=== PATIENT | male | born 1945 | race Hispanic/Latino ===

== ENCOUNTER → 2017-07-16 | Outpatient (CLI) | payer OTHER ==
[~2017-07-16] MED LIST: CHRO400T10 PO; CYAN50008 PO; FOLI0.8T PO; INS7030 SQ; LOSA100T29 PO; MAGN250T10 PO; NUTR113P PO; RIBA200T4 PO; SOFO1TAB PO
== END | disposition home or self-care (01) ==
LOC: SHCH 10:10
PROVIDERS: ATTEND Internal Medicine Cardiovascular Disease
DX: I87.2 Venous insufficiency (chronic) (peripheral) (principal)
CPT/HCPCS: 93970

== ENCOUNTER → 2017-11-22 | Outpatient (CLI) | payer OTHER | END | disposition home or self-care (01) | LOC: SHCH 10:05 | PROVIDERS: ATTEND Internal Medicine Cardiovascular Disease | DX: Z09 Encounter for follow-up examination after completed treatment for conditions other than malignant neoplasm (principal) | CPT/HCPCS: 93971 ==

== ENCOUNTER → 2018-03-10 | Outpatient (CLI) | payer OTHER ==
[~2018-03-10] MED LIST changes: +LOSA100T20 PO; -LOSA100T29 PO
== END | disposition home or self-care (01) ==
LOC: RAH 10:27
PROVIDERS: ATTEND Internal Medicine
DX: L97.529 Non-pressure chronic ulcer of other part of left foot with unspecified severity (principal); M86.8X7 Other osteomyelitis, ankle and foot
CPT/HCPCS: 73630

== ENCOUNTER → 2018-03-11 | Outpatient (CLI) | payer OTHER | END | disposition home or self-care (01) | LOC: RAH 09:26 | PROVIDERS: ATTEND Internal Medicine Gastroenterology | DX: K80.20 Calculus of gallbladder without cholecystitis without obstruction (principal); R16.1 Splenomegaly, not elsewhere classified; K74.60 Unspecified cirrhosis of liver; N28.1 Cyst of kidney, acquired | CPT/HCPCS: 76700; 93975 ==

== ENCOUNTER 2018-08-16 06:05 | Day surgery (SDC) | payer OTHER ==
[~2018-08-16] VITALS: Ht 167.6 cm; Wt 73.9 kg
[~2018-08-16 06:05] MED LIST changes: -LOSA100T20 PO; +LOSA100T58 PO; +SODIUM CHLORIDE 0.9% 1000ML 1,000 ML IV ONE
[2018-08-16] MEDS ORDERED: INS7030 SQ (07:24)
[2018-08-16] MEDS ORDERED: PROPRANOLOL (07:24)
[2018-08-16] MEDS ORDERED: GLIPIZIDE (07:24)
[2018-08-16] MEDS ORDERED: LOSA25TA41 PO (07:24)
[2018-08-16 07:25] VITALS: BP 147/63
[2018-08-16] MEDS ORDERED: PROPOFOL 10 MG/ML 20ML VIAL IV ONE (08:50)
[2018-08-16 08:58] VITALS: BP 86/30
[2018-08-16 09:05] VITALS: BP 106/41
[2018-08-16 09:10] VITALS: BP 109/50
[2018-08-16 09:15] VITALS: BP 118/46
[2018-08-16 09:28] VITALS: BP 126/57
== END 2018-08-16 09:35 | disposition home or self-care (01) ==
LOC: DAH 06:05 → ENDO 06:05
PROVIDERS: ATTEND Internal Medicine
DX: K29.50 Unspecified chronic gastritis without bleeding (principal); K31.89 Other diseases of stomach and duodenum; I85.10 Secondary esophageal varices without bleeding; K74.60 Unspecified cirrhosis of liver; Z79.899 Other long term (current) drug therapy
CPT/HCPCS: 43239; 82948 ×2; 88305; A4606; J2704; J7030

== ENCOUNTER → 2018-08-25 | Outpatient (CLI) | payer OTHER ==
[~2018-08-25] MED LIST changes: -CHRO400T10 PO; +GLIPIZIDE; -LOSA100T58 PO; +LOSA25TA41 PO; -NUTR113P PO; +PROPRANOLOL; -RIBA200T4 PO; -SODIUM CHLORIDE 0.9% 1000ML 1,000 ML IV ONE; -SOFO1TAB PO
== END | disposition home or self-care (01) ==
LOC: RAH 07:58
PROVIDERS: ATTEND Internal Medicine Gastroenterology
DX: K74.60 Unspecified cirrhosis of liver (principal); K80.20 Calculus of gallbladder without cholecystitis without obstruction
CPT/HCPCS: 76700

== ENCOUNTER 2018-09-20 08:11 | Day surgery (SDC) | payer OTHER ==
[~2018-09-20] VITALS: Ht 167.6 cm; Wt 74.4 kg
[~2018-09-20 08:11] MED LIST changes: +SODIUM CHLORIDE 0.9% 1000ML 1,000 ML IV ONE
[2018-09-20 09:01] VITALS: BP 142/57
[2018-09-20] MEDS ORDERED: PROPOFOL 10 MG/ML 20ML VIAL IV ONE (09:23)
[2018-09-20 09:37] VITALS: BP 96/28
[2018-09-20 09:42] VITALS: BP 112/54
[2018-09-20 09:47] VITALS: BP 102/54
[2018-09-20 09:52] VITALS: BP 128/59
[2018-09-20 09:58] VITALS: BP 139/64
== END 2018-09-20 11:05 | disposition home or self-care (01) ==
LOC: DAH 08:11 → ENDO 08:11
PROVIDERS: ATTEND Internal Medicine Gastroenterology
DX: D12.2 Benign neoplasm of ascending colon (principal); K57.30 Diverticulosis of large intestine without perforation or abscess without bleeding; Z86.010 Personal history of colon polyps; E11.9 Type 2 diabetes mellitus without complications; I10 Essential (primary) hypertension; M19.90 Unspecified osteoarthritis, unspecified site; I85.00 Esophageal varices without bleeding; B18.2 Chronic viral hepatitis C; C22.9 Malignant neoplasm of liver, not specified as primary or secondary; Z79.899 Other long term (current) drug therapy; Z98.890 Other specified postprocedural states
CPT/HCPCS: 45380; 82948 ×2; 93005; A4606; J2704; J7030

== ENCOUNTER → 2019-04-05 | Outpatient (CLI) | payer OTHER ==
[~2019-04-05] MED LIST changes: -SODIUM CHLORIDE 0.9% 1000ML 1,000 ML IV ONE
== END | disposition home or self-care (01) ==
LOC: RAH 07:50
PROVIDERS: ATTEND Internal Medicine Gastroenterology
DX: K74.60 Unspecified cirrhosis of liver (principal); K80.20 Calculus of gallbladder without cholecystitis without obstruction; R16.1 Splenomegaly, not elsewhere classified
CPT/HCPCS: 76700; 93975

== ENCOUNTER → 2019-11-13 | Outpatient (CLI) | payer OTHER | END | disposition home or self-care (01) | LOC: RAH 09:06 | PROVIDERS: ATTEND Internal Medicine Gastroenterology | DX: K80.20 Calculus of gallbladder without cholecystitis without obstruction (principal); K74.60 Unspecified cirrhosis of liver ==

== ENCOUNTER → 2020-08-28 | Outpatient (CLI) | payer OTHER ==
[~2020-08-28] MED LIST changes: -FOLI0.8T PO; +FOLI0.8T3 PO
== END | disposition home or self-care (01) ==
LOC: RAH 14:43
PROVIDERS: ATTEND Nurse Practitioner Family
DX: M79.89 Other specified soft tissue disorders (principal); M25.842 Other specified joint disorders, left hand
CPT/HCPCS: 73130

== ENCOUNTER 2021-08-16 13:13 | Inpatient (IN) | payer OTHER ==
[~2021-08-16] VITALS: Ht 167.6 cm; Wt 71.9 kg
[~2021-08-16 13:13] MED LIST changes: -CYAN50008 PO; +CYAN50009 PO
[2021-08-16 13:59] LABS: EOSINOPHILS % (AUTO) 1.1 % (0.0-8.0); HEMATOCRIT 24.9 % (42-54); LYMPHOCYTES % (AUTO) 11.5 % (21.0-51.0); MEAN CORPUSCULAR HEMOGLOBIN 18.4 pg (27.0-33.0); MEAN CORPUSCULAR HGB CONC 27.3 g/dL (32.0-36.0); MEAN CORPUSCULAR VOLUME 67.3 fL (79-99); PLATELET COUNT (AUTO) 44 K/uL (130-400); RED CELL DISTRIBUTION WIDTH 16.5 % (11.0-15.5); WHITE BLOOD COUNT (AUTO) 2.7 K/uL (4.8-10.8)
[2021-08-16 14:22] LABS: CREATININE 0.7 mg/dL (0.5-1.5); POTASSIUM 4.3 mmol/L (3.5-5.1)
[2021-08-16 14:27] LABS: ALBUMIN 3.1 g/dL (3.5-5.0); BILIRUBIN,TOTAL 0.6 mg/dL (0.2-1.0); TOTAL PROTEIN, SERUM 6.6 g/dL (6.0-8.3)
[2021-08-16 14:56] LABS: EOSINOPHILS % (MANUAL) 2 % (1-6); LYMPHOCYTES % (MANUAL) 12 % (22-44); MAN.DIFF COMMENT-IMPRESSION MANUAL DIFFERENTIAL; MONOCYTES % (MANUAL) 11 % (2-9); SEGMENTED NEUTROPHILS % 75 % (40-70)
[2021-08-16 16:08] LABS: INR 1.24 (0.85-1.15); PROTHROMBIN TIME 13.3 SEC (9.6-11.6)
[2021-08-16 16:09] LABS: PARTIAL THROMBOPLASTIN TIME 28.1 SEC (26.3-35.5)
[2021-08-16] MEDS ORDERED: ACETAMINOPHEN 325 MG TAB PO PRN ×2 (16:30)
[2021-08-16] MEDS ORDERED: MORPHINE 2 MG SYG IV PRN (16:30)
[2021-08-16] MEDS ORDERED: ONDANSETRON 4MG INJ IV PRN (16:30)
[2021-08-16] MEDS ORDERED: LOSA50TA64 PO (16:43)
[2021-08-16] MEDS ORDERED: PANT40TA54 PO (16:43)
[2021-08-16] MEDS ORDERED: PROP20TA96 PO (16:43)
[2021-08-16] MEDS ORDERED: PANTOPRAZOLE 40MG INJ 80 MG in 0.9%NACL 100ML 100 ML IV SCH (16:48)
[2021-08-16 19:20] LABS: HEMATOCRIT 24.2 % (42-54)
[2021-08-16 19:38] LABS: ALBUMIN 2.9 g/dL (3.5-5.0); BILIRUBIN,DIRECT 0.2 mg/dL (0.0-0.3); BILIRUBIN,TOTAL 0.7 mg/dL (0.2-1.0); TOTAL PROTEIN, SERUM 6.5 g/dL (6.0-8.3)
[2021-08-16] MEDS ORDERED: PANTOPRAZOLE 40 MG/VIAL ONE (20:31)
[2021-08-16 21:00] VITALS: BP 146/55
[2021-08-16 21:52] LABS: % IRON SATURATION 4.5 % (30-44)
[2021-08-16] MEDS ORDERED: ZOSYN 3.375GM +NS 50ML IV SCH (22:30)
[2021-08-16 22:39] LABS: HEMATOCRIT 26.2 % (42-54)
[2021-08-16 22:44] LABS: HEMOGLOBIN A1C 9.1 % (4.0-6.0)
[2021-08-17] VITALS (13 sets, daily range): BP systolic 116–151; BP diastolic 34–70
[2021-08-17 04:37] LABS: BASOPHILS % (AUTO) 0.6 % (0.0-5.0); EOSINOPHILS % (AUTO) 1.7 % (0.0-8.0); HEMATOCRIT 25.2 % (42-54); LYMPHOCYTES % (AUTO) 17.2 % (21.0-51.0); MEAN CORPUSCULAR HEMOGLOBIN 19.9 pg (27.0-33.0); MEAN CORPUSCULAR HGB CONC 28.6 g/dL (32.0-36.0); MEAN CORPUSCULAR VOLUME 69.8 fL (79-99); MONOCYTES % (AUTO) 11.7 % (3.0-13.0); NEUTROPHILS % (AUTO) 68.8 % (40.0-77.0); PLATELET COUNT (AUTO) 48 K/uL (130-400); RED BLOOD CELL COUNT(AUTO) 3.61 MIL/uL (4.50-6.20); RED CELL DISTRIBUTION WIDTH 17.4 % (11.0-15.5); WHITE BLOOD COUNT (AUTO) 1.8 K/uL (4.8-10.8)
[2021-08-17 04:47] LABS: INR 1.29 (0.85-1.15); PROTHROMBIN TIME 13.7 SEC (9.6-11.6)
[2021-08-17 04:55] LABS: ALBUMIN 2.7 g/dL (3.5-5.0); BILIRUBIN,TOTAL 1.2 mg/dL (0.2-1.0); CREATININE 0.7 mg/dL (0.5-1.5); POTASSIUM 3.8 mmol/L (3.5-5.1)
[2021-08-17 05:51] LABS: ERYTHROCYTE SEDIMENTATION RATE 7 MM/HR (0-20)
[2021-08-17] MEDS: INSULIN HUMULIN R 100 UNIT/ML 3ML SQ SCH ×4 (06:08→21:07)
[2021-08-17] MEDS: PANTOPRAZOLE 40 MG/VIAL IVP SCH ×2 (10:16→20:57)
[2021-08-17] MEDS ORDERED: PROPOFOL 10 MG/ML 20ML VIAL IV ONE ×2 (11:33→11:38)
[2021-08-17 17:46] LABS: HEMATOCRIT 29.9 % (42-54)
[2021-08-17] MEDS: ZOSYN 3.375GM +NS 50ML IV SCH (17:59)
[2021-08-18 00:05] LABS: HEMATOCRIT 29.3 % (42-54)
[2021-08-18 04:00] VITALS: BP 118/56
[2021-08-18] MEDS: INSULIN HUMULIN R 100 UNIT/ML 3ML SQ SCH ×3 (05:40→16:30)
[2021-08-18] MEDS: ZOSYN 3.375GM +NS 50ML IV SCH (05:40)
[2021-08-18 08:00] VITALS: BP 134/60
[2021-08-18] MEDS: PANTOPRAZOLE 40 MG/VIAL IVP SCH (08:11)
[2021-08-18] MEDS ORDERED: PANT40TA54 PO (08:57)
[2021-08-18 11:50] VITALS: BP 121/51
[2021-08-18] MEDS ORDERED: SUCRALFATE 1 GM TABLET PO SCH (15:00)
[2021-08-18 15:55] LABS: AMYLASE 39 U/L (25-115); LIPASE 73 U/L (114-286)
[2021-08-18 16:00] VITALS: BP 151/65
== END 2021-08-18 17:00 | disposition home or self-care (01) | DRG 432 ==
LOC: EDH 13:13 → EDHIP 16:17 → 3BH 20:13
PROVIDERS: ADMIT Hospitalist; ATTEND Hospitalist
PROC: 30233N1 Transfusion of Nonautologous Red Blood Cells into Peripheral Vein, Percutaneous Approach (ICD-10-PCS; 2021-08-16)
PROC: 06L38CZ Occlusion of Esophageal Vein with Extraluminal Device, Via Natural or Artificial Opening Endoscopic (ICD-10-PCS; principal; 2021-08-17)
PROC: 30233R1 Transfusion of Nonautologous Platelets into Peripheral Vein, Percutaneous Approach (ICD-10-PCS; 2021-08-17)
DX: K74.60 Unspecified cirrhosis of liver (principal); I85.11 Secondary esophageal varices with bleeding; D61.818 Other pancytopenia; D68.59 Other primary thrombophilia; D62 Acute posthemorrhagic anemia; E11.9 Type 2 diabetes mellitus without complications; K31.89 Other diseases of stomach and duodenum; D64.9 Anemia, unspecified; Z20.822 Contact with and (suspected) exposure to COVID-19; Z79.4 Long term (current) use of insulin; Z86.19 Personal history of other infectious and parasitic diseases; Z83.3 Family history of diabetes mellitus; Z82.3 Family history of stroke
CPT/HCPCS: 36415; 36430; 43235; 74150; 76700; 80053; 80076; 82140; 82150; 82270; 82948; 83036; 83540; 83550; 83690; 84145; 85014; 85018; 85025; 85610; 85651; 85730; 86850; 86900; 86901; 86923; 87635; 93005; C9113; G0378; J1815; J2543; J2704; J7030; P9016; P9034

== ENCOUNTER → 2022-02-03 | Outpatient (CLI) | payer OTHER ==
[~2022-02-03] MED LIST changes: -FOLI0.8T3 PO; -GLIPIZIDE; -LOSA25TA41 PO; +LOSA50TA64 PO; -MAGN250T10 PO; +PANT40TA54 PO; +PROP20TA96 PO; -PROPRANOLOL
== END | disposition home or self-care (01) ==
LOC: RAH 07:48
PROVIDERS: ATTEND Internal Medicine Gastroenterology
DX: N28.1 Cyst of kidney, acquired (principal); K74.60 Unspecified cirrhosis of liver; K80.20 Calculus of gallbladder without cholecystitis without obstruction
CPT/HCPCS: 76700; 93975

== ENCOUNTER → 2022-07-08 | Outpatient (CLI) | payer OTHER | END | disposition home or self-care (01) | LOC: RAH 08:24 | PROVIDERS: ATTEND Internal Medicine | DX: K74.60 Unspecified cirrhosis of liver (principal) | CPT/HCPCS: 76700 ==

== ENCOUNTER → 2023-04-02 | Outpatient (CLI) | payer OTHER | END | disposition home or self-care (01) | LOC: RAH 12:27 | PROVIDERS: ATTEND Internal Medicine Gastroenterology | DX: R13.10 Dysphagia, unspecified (principal); R63.30 Feeding difficulties, unspecified; K74.60 Unspecified cirrhosis of liver | CPT/HCPCS: 74230; 92611 ==

== ENCOUNTER 2024-03-07 06:45 | Day surgery (SDC) | payer OTHER ==
[~2024-03-07] VITALS: Ht 167.6 cm; Wt 65.3 kg
[2024-03-07] VITALS (9 sets, daily range): BP systolic 121–137; BP diastolic 51–64; PULSE 64–73; RESP 14–18; TEMP 97.3–97.7
[~2024-03-07 06:45] MED LIST changes: +FURO40TA5 PO; +GLYB2.5T5 PO; -PANT40TA54 PO; -PROP20TA96 PO; +SPIR50TA PO
[2024-03-07] MEDS: 0.9%NACL 1000ML 1,000 ML IV ONE (07:20)
[2024-03-07] MEDS ORDERED: proPOFol 10 MG/ML 20ML VIAL IV ONE (09:42)
== END 2024-03-07 11:00 | disposition home or self-care (01) ==
LOC: ENDO 06:45 → DAH 06:45 → ENDO 11:00
PROVIDERS: ATTEND Internal Medicine
DX: D50.9 Iron deficiency anemia, unspecified (principal); K29.50 Unspecified chronic gastritis without bleeding; K57.30 Diverticulosis of large intestine without perforation or abscess without bleeding; K76.6 Portal hypertension; K31.89 Other diseases of stomach and duodenum; R13.10 Dysphagia, unspecified; K74.60 Unspecified cirrhosis of liver; K80.20 Calculus of gallbladder without cholecystitis without obstruction; I10 Essential (primary) hypertension; G47.30 Sleep apnea, unspecified; E11.9 Type 2 diabetes mellitus without complications; M19.90 Unspecified osteoarthritis, unspecified site; E78.5 Hyperlipidemia, unspecified; F41.9 Anxiety disorder, unspecified; F32.A Depression, unspecified; I85.10 Secondary esophageal varices without bleeding; Z86.19 Personal history of other infectious and parasitic diseases; Z79.899 Other long term (current) drug therapy
CPT/HCPCS: 43244; 82948 ×2; 43239; 45378; J7030 ×2; J2704; A4615; A7002; J3490